=== PATIENT | male | born 1950 | race African-American/Black ===

== ENCOUNTER 2018-03-02 05:30 | Day surgery (SDC) | payer OTHER ==
[~2018-03-02] VITALS: Ht 172.7 cm; Wt 83.9 kg
--- NOTE | ~2018-03-02 | O ---
[facility] [place] [address] OPERATIVE REPORT Name: AMY MELENDEZ Room #: DEP [facility].#: [id number] Admission: 03/02/18 Attend Phys: Arun Dean MD Discharge: 03/02/18 Date of : 46 Report #: [id number] THIS REPORT FOR: //name// CC: Leonardo Early Srinivasa Dean Dianne DATE OF SERVICE: 03/02/2018 SURGEON: Arun Dean MD PREOPERATIVE DIAGNOSIS: Bilateral nasal lacrimal duct obstruction. POSTOPERATIVE DIAGNOSIS: Bilateral nasal lacrimal duct obstruction. OPERATION PERFORMED: Bilateral endoscopic dacryoplasty with silicone intubation. ANESTHESIA: General. COMPLICATIONS: None. INDICATIONS FOR SURGERY: This patient has acquired bilateral nasal lacrimal duct stenosis with chronic tearing and discharge, both eyes. The current procedures are undertaken in order to improve the patient's level of lacrimal outflow and visual clarity. Informed consent was obtained to include but not limited to the potential risks for damage to the eye, loss of vision, bleeding, infection, failure to improve the problem and need for further surgery. DESCRIPTION OF OPERATION: The patient was taken to the operating room, where general anesthesia was administered. The medial canthi were anesthetized with 2% Xylocaine with epinephrine mixed with equal parts of 0.75% Marcaine with Wydase. The lateral amaral of the nose were then bilaterally injected with the same anesthetic mixture. The nose was packed with Afrin-soaked cottonoids. The patient was then prepped and draped in the usual sterile fashion. A moist compress was placed on the left eye while attention was turned to the right side. The superior and inferior puncta were then atraumatically dilated with a punctum dilator. A size 0 lacrimal probe was then passed through the superior canalicular system and through the stenosed nasal lacrimal duct. The nasal packing was removed and the endoscope was brought into the field. The inferior turbinate was gently infractured with a Hamer periosteal elevator to allow [facility] [address] [place] [address] OPERATIVE REPORT Name: AMY MELENDEZ Room #: DEP [facility].#: [id number] Admission: 03/02/18 Attend Phys: Arun Dean MD Discharge: 03/02/18 Date of : 46 Report #: [id number] visualization of the inferior meatus in the area of the opening of the valve of Hasner in the nose. The probe was found and confirmed to be in the proper location. It was removed and subsequently replaced with a size 1 and a size 2 Celis probe, which also had their passage confirmed endoscopically to be in the proper location. A 3 by 15 LacriCatheter was lubricated with a small quantity of ophthalmic antibiotic ointment. The LacriCatheter was then passed through the superior canalicular system and the stenosed nasal lacrimal duct. The LacriCatheter was confirmed to be in the proper location endoscopically intranasally in the inferior meatus. The LacriCatheter was inflated to 9 atmospheres for 90 seconds and deflated. The catheter was then inflated to 9 atmospheres for 60 seconds. The catheter was then withdrawn to the proximal black ring. It was then inflated to 9 atmospheres for 90 seconds. The balloon was then deflated and reinflated to 9 atmospheres for 60 seconds. The balloon was the aspirated and withdrawn to the distal black ring. It was then inflated to 9 atmospheres for 90 seconds. The balloon was deflated and reinflated to 9 atmospheres for 60 seconds. The balloon was then deflated and vigorously aspirated as it was withdrawn through the superior canalicular system. A Zelaya tube was then passed through the superior canalicular system and out the dilated duct. The Zelaya tube was secured under the inferior turbinate in the inferior meatus with a Zelaya hook and retrieved endoscopically. The Zelaya tube was then passed through the inferior canalicular system in a similar fashion and was retrieved endoscopically in the nose atraumatically. The Zelaya tube was then secured to itself with 3 square throws and then to the lateral wall of the nose with a 5-0 Prolene suture. Attention was then turned to the other side, where the same procedure was performed. Antibiotic steroid drops were then placed in both eyes. A small quantity of ophthalmic antibiotic ointment was placed on the Zelaya tube. The patient was then transported to the recovery area with no anesthetic or operative complications being noted. <ELECTRONICALLY SIGNED> By: Arun Dean MD 03/13/18 [id number] Arun Dean MD /nt
[~2018-03-02 05:30] MED LIST: AMLODIPINE-BEN1 EACH PO; ASPIR 8181 MG PO; GLYCOLAX POWDER17 G1 PO; LISINOPRIL20 MG PO; MIRALAX17 GM PO; MULTI VITAMIN1 EACH PO; NABUMETONE 500500 M1 PO; NORVASC10 MG PO; OMEGA-3 KRILL1 EAC1 PO; PHENYTOIN SODI100 MG PO; PROPOXY-N-APAP1 EACH PO; VALPROIC ACID250 MG PO; VITAMIN B-121000 MCG PO; VITAMIN D5000 UNIT PO
[2018-03-02 11:02] VITALS: BP 135/85
== END 2018-03-02 13:15 | disposition home or self-care (01) ==
LOC: OR 05:30 → TBA 05:30 → OR 08:44
DX: H04.553 Acquired stenosis of bilateral nasolacrimal duct (principal); I10 Essential (primary) hypertension; Z98.890 Other specified postprocedural states; Z79.899 Other long term (current) drug therapy; Z79.82 Long term (current) use of aspirin
CPT/HCPCS: 50010; 50101; 50261; 50386; 50398; 51777; 56528; 62110; 62900; 64037; 70005